=== PATIENT | male | born 1945 ===

== ENCOUNTER 2017-12-14 06:04 | Day surgery (SDC) | payer MEDICARE ==
[2017-12-13 06:29] VITALS: BMI 29.7
[2017-12-14] MEDS ORDERED: Lidocaine 2 GM/50 ML Vial (4%) IV ONE (06:54)
[2017-12-14] MEDS ORDERED: Nitroglycerin 50mg in D5W 50 MG/250 ML BOTTLE IV ONE (06:55)
[2017-12-14] MEDS ORDERED: Iodixanol 320 MG/ML 200 ML BOTTLE IV ONE (06:55)
[2017-12-14] MEDS ORDERED: Phenylephrine 10 mg/ml Inj ONE (06:55)
[2017-12-14] MEDS ORDERED: Iodixanol 320 MG/ML 100 ML BOTTLE IV ONE (06:55)
[2017-12-14] MEDS ORDERED: Iohexol 350mgl/ml 50 ML ONE (06:55)
[2017-12-14 07:00] LABS: BASO # 0.02 K/mm3 (0.0-2.0); BASO % 0.4 % (0.0-3.0); EOS # 0.1 (0.0-0.7); EOS % 1.8 % (1.5-5.0); GRAN # 3.36 (1.4-6.5); GRAN % 58.9 % (50.0-68.0); HEMOGLOBIN 14.3 g/dL (14.0-18.0); LYMPH # 1.6 (1.2-3.4); LYMPH % 28.4 % (22.0-35.0); MEAN CELL VOLUME 86.2 fl (80.0-105.0); MEAN CORPUSCULAR HGB CONC 33.6 g/dl (31.0-37.0); MEAN PLATELET VOLUME 9.9 fl (7.0-11.0); MONO # 0.6 (0.1-0.6); MONO % 10.5 % (1.0-6.0); RBC 4.93 10^6/uL (3.5-6.1); RED CELL DISTRIBUTION WIDTH 14.2 % (11.5-14.5); WHITE BLOOD COUNT 5.7 10^3/ul (4.5-11.0)
[2017-12-14 07:13] LABS: BLOOD UREA NITROGEN 26 mg/dL (7-21); CALCIUM 8.8 mg/dL (8.4-10.5); GFR AFRICAN-AMERICAN > 60; GFR NON-AFRICAN AMERICAN > 60
[2017-12-14 07:25] LABS: INR 1.19 (0.93-1.08); PARTIAL THROMBOPLASTIN TIME 27.9 Seconds (25.1-36.5); PROTHROMBIN TIME 13.7 SECONDS (9.4-12.5)
[2017-12-14] MEDS ORDERED: Midazolam 2 MG/2 ML VIAL ONE ×2 (08:04→08:20)
--- NOTE | 2017-12-14 08:19 | CARD ---
APPROVED REPORT Date of service: 12/14/2017 EKG Measurement Heart [id number] <Conclusion> Atrial fibrillation Moderate Rate. Incomplete right bundle branch block Inferior infarct, age Old. ST & T wave abnormality, consider lateral ischemia or digitalis effect. Correlate Clinically. Abnormal ECG
[2017-12-14] MEDS ORDERED: Sodium Chloride 0.9% 1,000 ML IV SCH (08:45)
[2017-12-14 09:21] VITALS: RESP 18; TEMP 97.3
--- NOTE | 2017-12-14 10:43 | CARDCATH ---
PROCEDURE DATE: 12/14/2017 HISTORY: The patient is a 72-year-old male with a history of chronic atrial fibrillation, hypertension and hypercholesterolemia, who presents with an abnormal stress test. He complains of intermittent chest pain. Because of this, cardiac catheterization was recommended. In addition, the patient has a documented cardiomyopathy. I performed moderate sedation which included the presence of an independent trained observer that assisted in monitoring the patient's level of consciousness and physiologic status. After administration of Versed and fentanyl, my intra service time was 15 minutes. PROCEDURE: Left heart catheterization with coronary arteriography, left ventriculogram, supra-aortic valvular injection. The right femoral artery was cannulated with a 6-[place] sheath. There were no complications. The findings on catheterization revealed a left ventricle that revealed an ejection fraction of 45-50% which is better than what was reported on the stress test. His coronary anatomy revealed a left dominant circulation. The RCA was a small vessel with no critical lesions. The left main artery was unremarkable. The LAD and diagonal vessels revealed diffuse atherosclerosis without critical lesions. The circumflex artery was a dominant vessel and revealed diffuse atherosclerosis without critical lesions. Supra-aortic valvular injection revealed no aortic insufficiency. Angio-Seal was used to close the femoral artery site. The patient tolerated the procedure well. In summary, the procedure revealed cardiomyopathy with an LV that is better than what was reported on the stress test. His coronary anatomy revealed a left dominant circulation with diffuse atherosclerosis without critical lesions. Given these findings, we will restart the patient on his Coumadin. We will continue a cardiac risk-reduction program. Ruben Kaplan MD
[2017-12-14 12:16] VITALS: PULSE 75; O2SAT 95
[2017-12-14 12:28] VITALS: BP 140/97
== END 2017-12-14 15:00 | disposition home or self-care (01) ==
LOC: CATH 06:04
PROVIDERS: ATTEND Internal Medicine Cardiovascular Disease
DX: I42.9 Cardiomyopathy, unspecified (principal); I25.10 Atherosclerotic heart disease of native coronary artery without angina pectoris; E78.00 Pure hypercholesterolemia, unspecified; I10 Essential (primary) hypertension; I48.2 Chronic atrial fibrillation
CPT/HCPCS: 36415; 80048; 85025; 85610; 85730; 86850; 86900; 93005; 93458; 99152; 99153; C1760; C1769; C1894; J1644; J2250; J3010; J7030; Q9966

== ENCOUNTER 2018-06-25 09:47 | Outpatient (CLI) | payer MEDICARE, OTHER | END 2018-06-25 09:48 | disposition home or self-care (01) | LOC: RAD 09:47 ==